=== PATIENT | female | born 1950 | race Caucasian/White ===

== ENCOUNTER → 2021-04-27 | Outpatient (CLI) | payer MEDICARE ==
[~2021-04-27] MED LIST: CONZIP100 MG PO; CYANOCOBAL1000 MCG/M IM; CYANOCOBAL1000 MCG/M INJ; DAILY MULTIPLE1 EACH PO; LOMOTIL TABLET1 EACH PO; LYRICA75 MG PO; NORCO 7.5-3251 EACH PO; OPANA ER20 MG PO; OPANA10 MG PO; PANTOPRAZOLE SO40 MG PO; PRISTIQ100 MG PO; TYLENOL WITH C1 EAC1 PO; Z WELLBUTRIN PO
== END ==
LOC: MRI 08:35
PROVIDERS: ATTEND Podiatrist Foot & Ankle Surgery
DX: M76.71 Peroneal tendinitis, right leg (principal)